=== PATIENT | male | born 1960 | race Caucasian/White ===

== ENCOUNTER → 2017-06-23 05:56 | Outpatient (CLI) | payer BC, SELFPAY ==
[2017-06-23 08:00] LABS: Thyroid Stim Hormone (TSH) 9.25 uIU/mL (0.358-3.74)
== END ==
PROVIDERS: Family Provider Family Medicine; PCP Family Medicine; Visit Provider Family Medicine
DX: E03.9 Hypothyroidism, unspecified (principal)
CPT/HCPCS: 36415; 84443

== ENCOUNTER → 2018-05-05 11:37 | Outpatient (CLI) | payer BC, SELFPAY ==
[2018-05-05 14:09] LABS: Thyroid Stim Hormone (TSH) 0.48 uIU/mL (0.358-3.74)
== END ==
PROVIDERS: Family Provider Family Medicine; PCP Family Medicine; Referring Provider Family Medicine; Visit Provider Family Medicine
DX: E03.9 Hypothyroidism, unspecified (principal)
CPT/HCPCS: 36415; 84443

== ENCOUNTER 2020-07-08 10:54 | Observation (INO) | payer BC, SELFPAY ==
[2020-07-08] VITALS (9 sets, daily range): BP systolic 127–156; BP diastolic 66–98; PULSE 73–110; RESP 14–24; TEMP 35.8–36.7; O2SAT 96–99; BMI 41.1; BMI 41.3
--- NOTE | 2020-07-08 11:07 | RAD_ITS ---
STUDY: X-RAY CHEST REASON FOR EXAM: Male, 60 years old. dyspnea TECHNIQUE: Single AP portable view of the chest. COMPARISON: None. FINDINGS: The lungs are clear and expanded. There is no demonstrated pleural abnormality. Normal size heart. Normal mediastinum and harpreet. Normal visualized pulmonary arteries. Normal visualized aortic arch and descending thoracic aorta. Normal visualized thoracic spine. Healed fracture the right clavicle. There is no demonstrated abnormality of the visualized soft tissue structures of the upper abdomen. RAD/Chest 1 View (Portable) IMPRESSION: Normal x-ray examination of the chest. Electronically Signed: Derek Mcintosh MD at 12:49 EDT Tel , Service support ,
--- NOTE | 2020-07-08 11:07 | EKG12_ITS ---
Test Reason : CP Blood Pressure : / mmHG Vent. Rate : 098 BPM Atrial Rate : 086 BPM P-R Int : 000 ms QRS Dur : 084 ms QT Int : 398 ms P-R-T Axes : 000 080 076 degrees QTc Int : 508 ms Atrial fibrillation Nonspecific ST abnormality Prolonged QT Abnormal ECG Confirmed by BRYCE VALENTINE, STEVEN ([id number]), content editor VINICIO LYLE ([id number]) on 07/11/2020 12:43:52 PM Referred By: ANGELIKA/ALICE Confirmed By:STEVEN WU MD
--- NOTE | 2020-07-08 11:07 | CT_ITS ---
STUDY: CT BRAIN WITHOUT CONTRAST REASON FOR EXAM: Male, 60 years old. dizziness, RADIATION DOSAGE (If Supplied By Facility): CTDIvol = ( 44.99 ) mGy, DLP = ( 846.73 ) mGycm TECHNIQUE: Transaxial CT imaging of the brain was performed without administration of intravenous contrast material. Individualized dose optimization techniques were used for this CT. COMPARISON: No relevant priors. FINDINGS: Normal soft tissue structures. Normal calvarium. Normal size ventricles and extra-axial spaces for the patient''s age. Normal white matter tracts of the cerebral hemispheres. Normal basal ganglia and thalami. Normal brainstem. Normal cerebellum. There is no intracranial hemorrhage. There are no findings of an acute ischemic infarction. There is mucoperiosteal inflammatory disease of the paranasal sinuses consistent with moderate chronic sinusitis. CT/Brain/Head without Contrast IMPRESSION: Normal unenhanced CT scan of the brain. Electronically Signed: Derek Mcintosh MD at 12:51 EDT Tel , Service support ,
--- NOTE | 2020-07-08 11:09 | EDS_ITS ---
HPI History of Present Illness Chief Complaint: General Illness Detail of Chief Complaint: Not feeling well for several days Informant: patient Narrative Narrative: Patient presents to the emergency department with multiple complaints today. Patient states that he feels dizzy and is having a hard time walking. The dizziness really became worse today. Dizziness is worse with position change. He was nauseated and vomited once on arrival the emergency department. Patient also feels like he is in atrial fibrillation which he has had before and is currently on Eliquis. He denies any falls or head injuries. He does state that over last couple days he feels like he is got a cold and has had a little bit of a cough and nasal congestion. Patient has had Covid prior. He denies recent travel or surgery. He describes some chest tightness. Patient states that he has been cardioverted for A. fib several times in the past. Prior similar symptoms: No PFSH PFS Medical History (Updated 07/08/20 @ 13:[address] Simon Schaffer, DO) Atrial fibrillation Hypothyroidism Home Medications apixaban [Eliquis] 5 mg PO QODAY 07/08/20 [History Last Taken Unknown] cetirizine 10 mg PO DAILY 07/08/20 [History Last Taken Unknown] levothyroxine 112 mcg PO DAILY 07/08/20 [History Last Taken Unknown] rosuvastatin 40 mg PO DAILY 07/08/20 [History Last Taken Unknown] Allergy/AdvReac Type Severity Reaction Status Date / Time No Known Allergies Allergy Verified 07/08/20 11:01 Surgical History (Updated 07/08/20 @ 11:54 by Altagracia Norris RN) History of coronary artery stent placement Social History (Updated 07/21/19 @ 11:25 by Farooq MAURER, PA) Smoking Status: Former smoker ROS ROS ED Constitutional Constitutional ED: Reports systems reviewed and no addt'l complaints, except as documented; Denies body ache(s), change in weight or chills Eyes Eyes: Denies acute decrease in peripheral vision, change in vision, double vision or loss of vision ENT ENT ED: Reports none; Denies ear pain, lip swelling, loss taste/smell, neck pain, otalgia or sore throat Cardiovascular Cardiovascular: Reports none, chest pain and palpitations; Denies abdominal pain, chest pain with activity, leg edema, lightheadedness, rapid heart rate or syncope Respiratory/Chest Respiratory/Chest: Reports none, cough and sputum; Denies change in mental status, dry cough, dyspnea, hemoptysis, shortness of breath at rest or shortness of breath with exertion Gastrointestinal Gastrointestinal: Reports none, nausea and vomiting; Denies abdominal pain, change in stool character, diarrhea, hematemesis, hematochezia, melena or rectal bleeding Genitourinary Genitourinary ED: Reports none; Denies abdominal discomfort, anuria, dysuria, genital pain or polyuria Musculoskeletal Musculoskeletal: Reports none; Denies arthralgias, back pain, difficulty walking, extremity pain, muscle weakness or myalgias Integumentary Reports none; Denies abscess or rash Neurologic Neurologic: Reports none and other Details: Dizziness ; Denies abnormal gait, confusion, focal weakness, frequent falls, headache(s), loss of vision, numbness, paresthesias, radicular pain, vertigo or weakness Psychiatric Psychiatric: Reports systems reviewed and no addt'l complaints, except as documented and none; Denies behavioral changes, confusion, difficulty concentrating, hallucinations, suicidal ideation, tactile hallucinations or visual hallucinations Endocrine Endocrinology: Denies none, cold intolerance, excessive sweating, fatigue or heat intolerance Hematologic/Lymphatic Hematologic/Lymphatic: Reports none; Denies anemia, easy bleeding or easy bruising Allergic/Immunologic Allergic/Immunologic ED: Denies as per HPI, none, lip swelling, mouth swelling, throat swelling, tongue swelling or hives EXAM Physical Exam Const Vital Signs: 07/08/20 10:54 07/08/20 11:53 07/08/20 13:27 Temperature 97.0 F L Temperature Source Oral Pulse Rate 99 73 Respiratory Rate 24 H 16 Respiratory Effort Normal Non-Labored Respiratory Pattern Normal Blood Pressure 156/85 H 142/91 H Blood Pressure Mean 108 108 Pulse Ox 97 99 Oxygen Delivery Method Room Air Room Air Positive well nourished and well developed General Appearance ED: well developed and NAD HEENT Reports TM's clear and moist mucous membranes normocephalic and atraumatic; Negative for trauma or tenderness Tympanic Membrane ED: Yes TM's clear Eyes PERRL and EOMs intact bilaterally General Eye ED: Negative for pale conjunctiva or scleral icterus Neck no lymphadenopathy, supple and no JVD General: Negative for tenderness Chest Wall inspection of chest normal and palpation of chest normal Chest: Negative for tenderness Resp normal respiratory effort and clear to auscultation bilaterally Effort and Inspection: Negative for respiratory distress or pain with movement Auscultation: Negative for rhonchi, wheezes or diminished lung sounds Cardio S1 normal heart sound, S2 normal heart sound and no murmurs Rate: other Other Details: Irregularly irregular Peripheral Pulses: pulses 2+ throughout GI normal to inspection, nondistended, normoactive bowel sounds, soft to palpation, non-tender, non-distended and no masses Back/Spine no CVA tenderness and no thoracic nor lumbar tenderness Extremity normal to inspection General Extremety ED: Negative for edema General Extremity: Negative for edema Neuro oriented x3, CN's II-XII intact bilaterally, no sensory deficits noted and gait normal Neuro Narrative: Patient does have nystagmus on Hallpike testing with head turn to the left. Sensorium / Orientation: awake, alert, oriented to person, oriented to place and oriented to time Motor Exam: strength 5/5 throughout and strength abnormal Psych mental status grossly normal Skin no rashes or lesions noted and no wounds MDM MDM MDM Narrative Medical decision making narrative: Patient was given Ativan and Antivert and felt somewhat improved. I suspect patient likely has benign positional vertigo. Patient also noted to have A. fib with RVR. He continues to complain of dizziness. Patient will be admitted for further treatment. At this point is unclear if his chest pain is related to the elevated heart rate in the A. fib versus acute coronary syndrome. At this time there are no ischemic changes on EKG and no evidence of elevated troponin. Lab Data Attestation: I reviewed the patient's lab results. Labs: Laboratory Results - last 24 hr 07/08/20 07/08/20 07/08/20 11:00 11:00 11:05 WBC 7.3 RBC 5.86 Hgb 17.2 H Hct 49.8 MCV 85.0 MCH 29.4 MCHC 34.5 RDW Std Deviation 40.6 RDW Coeff of [place]ierra 13.1 Plt Count 207 MPV 9.8 Immature Gran % (Auto) 0.400 Neut % (Auto) 68.4 Lymph % (Auto) 16.6 L [place] % (Auto) 11.5 H Eos % (Auto) 2.7 Baso % (Auto) 0.4 Absolute Neuts (auto) 5.0 Absolute Lymphs (auto) 1.22 Nucleated RBC % 0 Sodium 141 Potassium 3.6 Chloride 106 Carbon Dioxide 25.0 Anion Gap 10 BUN 17 Creatinine 0.95 Estim Creat Clear Calc 89.63 Est GFR (MDRD) Af Amer 103 Est GFR (MDRD) Non-Af 85 BUN/Creatinine Ratio 17.8 Glucose 120 H Lactic Acid 2.7 H* Calcium 8.9 Troponin I < 0.015 Radiography Chest X-Ray - ED: 1 View Diagnostic Testing: Radiology Impression Brain CT 07/08/20 11:07 IMPRESSION: Normal unenhanced CT scan of the brain. Electronically Signed: Derek Mcintosh MD at 12:51 EDT Tel , Service support , Chest X-Ray 07/08/20 11:07 IMPRESSION: Normal x-ray examination of the chest. Electronically Signed: Derek Mcintosh MD at 12:49 EDT Tel , Service support , 1 view chest x-ray obtained interpreted by myself as no acute disease process. EKG Initial EKG: Comments: Atrial fibrillation with a ventricular rate of [address] changes however poor baseline noted due to patient artifact of motion. Prior EKG tracings: available for review Prior: Changed (Prior EKG was sinus bradycardia) Discharge Plan Triage Chief Complaint: General Illness ED Provider: Simon Schaffer Dx/Rx/DC Orders Clinical Impression: Benign positional vertigo, Atrial fibrillation with rapid ventricular response, Chest pain Prescriptions: No Action cetirizine 10 mg tablet 10 mg PO DAILY RF: 0 levothyroxine 112 mcg tablet 112 mcg PO DAILY RF: 0 rosuvastatin 40 mg tablet 40 mg PO DAILY RF: 0 Eliquis 5 mg tablet 5 mg PO QODAY RF: 0 Primary Care Provider: Jose Luis Zhu Referrals: Jose Luis Zhu DO [Primary Care Provider] - Disposition Disposition: Acute Care [facility]
[2020-07-08 11:16] LABS: Absolute Lymphocyte Count 1.22 X10^3/uL (0.83-4.51); Basophil# 0.03 X10^3/uL; Basophil% 0.4 % (0-1); Eosinophils% 2.7 % (0-5); Hematocrit 49.8 % (40-54); Hemoglobin 17.2 g/dL (13.0-16.5); Lymphocyte # 1.22 X10^3/ul (0.83-4.51); Lymphocyte % 16.6 % (19-41); Mean Corp Hgb Conc 34.5 g/dL (32-36); Mean Corpuscular Hgb 29.4 pg (27.0-32.0); Mean Platelet Vol. 9.8 fl (6.2-12.0); Monocyte# 0.84 X10^3/uL; Monocyte% 11.5 % (0-10); NRBC Flagged by Analyzer 0 % (0-5); Neutrophil # 5.01 X10^3/uL (2.7-7.7); Neutrophil % 68.4 % (47-70); Platelet Count 207 K/mm3 (150-450); RBC Distribution Width CV 13.1 % (11.6-14.6); RBC Distribution Width SD 40.6 fl (35.1-43.9); Red Blood Count 5.86 M/mm3 (4.6-6.2); White Blood Count 7.3 K/mm3 (4.4-11.0)
[2020-07-08] MEDS: LORazepam 2 MG/ML Syringe 1 MG IV (11:21)
[2020-07-08] MEDS: Ondansetron 4 MG/2 ML Vial IV ×2 (11:22→15:50)
[2020-07-08] MEDS: 0.9% Normal Saline 1,000 ML 150 ML IV ×3 (11:22→20:37)
[2020-07-08] MEDS: Meclizine HCl 25 MG Tablet PO ×2 (11:24→20:45)
[2020-07-08 11:31] LABS: Anion Gap 10 (5-15); BUN 17 mg/dL (7-18); BUN/Creat Ratio 17.8 RATIO (10-20); Calcium,Total 8.9 mg/dL (8.5-10.1); Chloride 106 mmol/L (98-107); Creatinine, Serum 0.95 mg/dL (0.70-1.30); EST Glomerular Filtration Rate 85 mL/min (>60); Est Glom Filt Rate - Afr Amer 103 mL/min (>60); Estimated Creatinine Clearance 89.63 ml/min; Glucose 120 mg/dL (74-106); Potassium 3.6 mmol/L (3.5-5.1); Sodium Level 141 mmol/L (136-145)
[2020-07-08 11:55] LABS: Lactic Acid 2.7 mmol/L (0.4-1.9)
[2020-07-08] MEDS: dilTIAZem 25 MG/5 ML Vial 10 MG IV BOLUS (13:23)
--- NOTE | 2020-07-08 13:33 | HP.PCM.HOS_ITS ---
HPI - General General Date of Admission: 07/08/20 HPI Narrative ALLEN GARCIA, is a 60 M with a PMH as outlined who presents via the ED on 07/08/2020 with a myriad of complaints. He complained of dizziness and having a hard time walking, with dizziness worsened with position change. he has a history of afib and has been cardioverted in the past. He has also had a cough, with nasal congestion and cold. CT of [facility] brain done o/a of him being on eliquis was negative for intracranial bleed. He was nauseated and had vomiting on admission as well. Patient also complained of chest pressure on admission and felt his Afib was acting up. Patient had nystagmus in the ED with positional change after he had the Lonnie Hallpike testing. Vitals in the ED were blood pressure of 142/91, pulse rate of 73 and respiratory of 16 with oxygen sats of 99% on room air. CBC showed hemoglobin of 17.2 with WBC of 7.3 and platelets of 207. Lactic acid was 2.7. Chest x-ray showed no acute intracranial pathology. CT of the brain was normal. He is being admitted to be managed for vertigo and chest pain. [facility] Medical History (Updated 07/08/20 @ 16:[address] Katlyn Swift MD) Alcohol abuse Atrial fibrillation Former smoker GERD (gastroesophageal reflux disease) Hypothyroidism Home Medications apixaban [Eliquis] 5 mg PO DAILY 07/08/20 [History Last Taken Unknown] cetirizine 10 mg PO DAILY 07/08/20 [History Last Taken Unknown] levothyroxine 112 mcg PO DAILY 07/08/20 [History Last Taken Unknown] rosuvastatin 40 mg PO DAILY 07/08/20 [History Last Taken Unknown] Allergy/AdvReac Type Severity Reaction Status Date / Time No Known Allergies Allergy Verified 07/08/20 11:01 Surgical History (Updated 07/08/20 @ 11:54 by Altagracia Norris RN) History of coronary artery stent placement Social History (Updated 07/21/19 @ 11:25 by Farooq MAURER, LIBERTAD) Smoking Status: Former smoker ROS Constitutional Constitutional: Reports fatigue, malaise and weakness; Denies anorexia, change in weight, chills, fever(s) or night sweats Eyes Eyes: Denies blurry vision, discharge from eye(s) or double vision ENT HEENT: Denies abnormal hearing, dysphagia, headache(s), hearing loss or sinus pressure Cardiovascular Cardiovascular: Reports chest pain, lightheadedness and rapid heart rate; Denies dyspnea on exertion, edema, orthopnea, palpitations, paroxysmal nocturnal dyspnea or syncope Respiratory/Chest Respiratory/Chest: Reports shortness of breath at rest and shortness of breath with exertion; Denies cough, dyspnea, excessive phlegm production, hemoptysis, productive cough or wheezing Gastrointestinal Gastrointestinal: Denies abdominal pain, constipation or diarrhea Genitourinary Genitourinary: Denies burning urination or difficulty urinating Musculoskeletal Musculoskeletal: Denies arthralgias Neurologic Neurologic: Reports dizziness; Denies confusion, focal weakness, seizures or syncope Psychiatric Psychiatric: Denies anxiety Endocrine Endocrinology: Denies change in body appearance Hematologic/Lymphatic Hematologic/Lymphatic: Denies anemia Vital Signs Vital Signs Vital Signs: 07/08/20 10:54 07/08/20 11:53 07/08/20 13:27 Temperature 97.0 F L Temperature Source Oral Pulse Rate 99 73 Respiratory Rate 24 H 16 Respiratory Effort Normal Non-Labored Respiratory Pattern Normal Blood Pressure 156/85 H 142/91 H Blood Pressure Mean 108 108 Pulse Ox 97 99 Oxygen Delivery Method Room Air Room Air Weight Weight: 303 lb 2.17 oz Body Mass Index (BMI) 41.1 Physical Exam Const alert, oriented x3 and no apparent distress General Appearance: cooperative Orientation / Consciousness: lethargic HEENT normocephalic, head/scalp atraumatic, hearing grossly normal bilaterally and moist oral mucous membranes Eyes PERRL, EOMs intact bilaterally and conjunctivae normal Neck no lymphadenopathy Resp normal respiratory effort, no retractions, no use of accessory muscles and clear to auscultation bilaterally Cardio S1 normal heart sound, S2 normal heart sound and no murmurs Cardio Narrative: afib, rate controlled GI normal to inspection, nondistended, normoactive bowel sounds, soft to palpation, non-tender and non-distended Extremity normal to inspection, full ROM and no clubbing, cyanosis or edema Peripheral Pulses: Yes pulses 2+ throughout Skin no rashes or lesions noted Neuro oriented x3 Sensorium / Orientation: awake and alert Psych affect normal Lab / Micro Data Result Diagrams: 07/08/20 11:00 07/08/20 11:00 Labs: Laboratory Results - last 24 hr 07/08/20 07/08/20 07/08/20 11:00 11:00 11:05 WBC 7.3 RBC 5.86 Hgb 17.2 H Hct 49.8 MCV 85.0 MCH 29.4 MCHC 34.5 RDW Std Deviation 40.6 RDW Coeff of Cierra 13.1 Plt Count 207 MPV 9.8 Immature Gran % (Auto) 0.400 Neut % (Auto) 68.4 Lymph % (Auto) 16.6 L [place] % (Auto) 11.5 H Eos % (Auto) 2.7 Baso % (Auto) 0.4 Absolute Neuts (auto) 5.0 Absolute Lymphs (auto) 1.22 Nucleated RBC % 0 Sodium 141 Potassium 3.6 Chloride 106 Carbon Dioxide 25.0 Anion Gap 10 BUN 17 Creatinine 0.95 Estim Creat Clear Calc 89.63 Est GFR (MDRD) Af Amer 103 Est GFR (MDRD) Non-Af 85 BUN/Creatinine Ratio 17.8 Glucose 120 H Lactic Acid 2.7 H* Calcium 8.9 Troponin I < 0.015 Micro: Microbiology 07/08/20 11:05 SARS-CoV-2 Antigen (Rapid) - Final Interface Orders Radiology Impression Brain CT 07/08/20 11:07 IMPRESSION: Normal unenhanced CT scan of the brain. Electronically Signed: Derek Mcintosh MD at 12:51 EDT Tel , Service support , Chest X-Ray 07/08/20 11:07 IMPRESSION: Normal x-ray examination of the chest. Electronically Signed: Derek Mcintosh MD at 12:49 EDT Tel , Service support , Assessment & Plan Assessment/Plan (1) Chest pain: (2) Vertigo: (3) Atrial fibrillation with rapid ventricular response: PLAN: #Vertigo * Differential includes vestibular neuronitis in light of recent upper respiratory tract infection. BPPV also remains a possibility. * Admit to PCU with telemetry. * Hydrate gently with IV fluids. * CT of the brain was negative for any intracranial pathology. * I am less inclined to think symptoms may be due to a stroke as patient had a clear precipitating factor for respiratory tract infection over the last few days after which the vertigo started. He admits to tinnitus though he states this is chronic and he also has chronic hearing impairment so cannot tell if it is worsened overnight. * PT OT consult. Fall precautions. * If vertigo worsens, will get an MRI but will hold off for now in light of clear precipitating factor. * Meclizine as needed. * #Chest pressure * Patient states he felt his A. fib had recurred and he was having chest pressure. He denies overt chest pain. * We will cycle troponins. I did broach possible stress test tomorrow troponins are negative but patient does not appear to be enthused and wants to hold off on stress test for now * SL nitroglycerin prn. PO aspirin 81mg daily * EKG showed afib. * #AFib * Has had cardioversions in the past. Received a bolus of Cardizem in the ED. * Not on any beta-keren. Will start patient on p.o. metoprolol 25 mg twice daily. * #Hypothyroidism: on synthroid #Hyperlipidemia: on statin DVT prophylaxis: lovenox COde status: full code * Patient counseled about differences between full code, DNR CCA and DNR CCA. P atient tells me that he thinks he is too young and is not ready to yet and wants to be full code. * Total gyym-xg-tucx time 17 minutes. Visit Charges Inpatient E&M: 60945 Init Hosp L3 Procedures Hospitalists Procedures: 73730 Advncd Care Plan 30 Min
[2020-07-08 15:23] LABS: Reflex Lactate? Y
[2020-07-08 16:17] LABS: Lactic Acid 1.4 mmol/L (0.4-1.9)
--- NOTE | 2020-07-08 16:46 | MRI_ITS ---
STUDY: MRI BRAIN WITHOUT CONTRAST REASON FOR EXAM: Male, 60 years old. Vertigo TECHNIQUE: Standardized multiplanar fat and water weighted pulse sequences were obtained. COMPARISON: CT head without contrast 07/08/2020. FINDINGS: No diffusion restriction throughout the brain parenchyma. Normal size of the ventricles and extra-axial spaces for the patient''s age. View of posterior periatrial white matter T2 FLAIR hyperintensity foci in both cerebral hemispheres are presumably chronic white matter ischemic changes. Normal bilateral basal ganglia. Normal thalami. There is no extra-axial fluid accumulation. Normal flow voids within the major intracranial circulation suggesting patency by spin echo criteria. Normal sella turcica, pituitary gland, infundibular stalk, optic chiasm and hypothalamus. Normal tectal plate and pineal gland. Normal midbrain, [place] and medulla. Normal cerebellum. Normal basal cisterns. Normal bilateral temporal bones. Normal bilateral internal auditory canals. No demonstrated orbital abnormality, within the constraints of a routine brain study. Normal visualized paranasal sinuses. Normal calvarium and skull base. Normal visualized soft tissue structures. Normal visualized upper cervical spine. MRI/Brain without Contrast IMPRESSION: 1. No MRI evidence of acute or subacute ischemic infarct or acute intracranial abnormality. 2. Few chronic white matter ischemic changes in both periatrial white matter. Electronically Signed: Nate Villa MD at 16:14 EDT , Service support ,
--- NOTE | 2020-07-08 17:19 | MRI_ITS ---
STUDY: MRA OF THE HEAD WITHOUT CONTRAST REASON FOR EXAM: Male, 60 years old. Vertigo TECHNIQUE: 3-D [id number] (TOF) imaging was performed with MIPs. The study was performed unenhanced. COMPARISON: None. FINDINGS: Normal bilateral petrous carotid arteries. Normal right cavernous carotid artery with a normal supraclinoid bifurcation. Normal left cavernous carotid artery with a normal supraclinoid bifurcation. Normal right A1 segment of the anterior cerebral artery. Normal left A1 segment of the anterior cerebral artery. Normal intact anterior communicating artery (ACOM). Normal bilateral A2 segments of the anterior cerebral arteries. Normal right M1 and M2 segments of the middle cerebral arteries, with a normal M1 bifurcation. Normal left M1 and M2 segments of the middle cerebral arteries, with a normal M1 bifurcation. No visible right posterior communicating artery (PCOM). No visible left posterior communicating artery (PCOM). Normal bilateral vertebral arteries. Normal basilar artery with a normal basilar bifurcation. The visualized bilateral superior cerebellar (SCA) arteries are normal. Normal bilateral P1, P2 and visualized P3 segments of the posterior cerebral arteries. There is no demonstrated aneurysm of the [place] of [place]. There is no major vessel occlusion or hemodynamically significant stenosis. There is no demonstrated abnormality of the visualized brain. MRI/MRA Head ONLY without Contrast IMPRESSION: Normal MRA of the head Electronically Signed: Nate Villa MD at 16:15 EDT , Service support ,
--- NOTE | 2020-07-08 17:19 | MRI_ITS ---
STUDY: MRA NECK WITHOUT CONTRAST REASON FOR EXAM: Male, 60 years old. Vertigo TECHNIQUE: Source images were obtained, MIPs were performed. The study was performed unenhanced. COMPARISON: None. FINDINGS: RIGHT CAROTID ARTERIES: Normal right common carotid artery (CCA). Normal right internal carotid bulb. Normal origin of the right internal carotid (ICA) artery without a hemodynamically significant stenosis. Normal visualized cervical portion of the right internal carotid artery. Normal origin of the right external carotid artery (ECA). LEFT CAROTID ARTERIES: Normal left common carotid artery (CCA). Normal left internal carotid bulb. Normal origin of the left internal carotid (ICA) artery without a hemodynamically significant stenosis. Normal visualized cervical portion of the left internal carotid artery. Normal origin of the left external carotid artery (ECA). VERTEBRAL ARTERIES: Normal antegrade flow within the bilateral vertebral artery without a hemodynamically significant stenosis. They are codominant. MRI/MRA Neck without Contrast IMPRESSION: Normal bilateral cervical carotid and vertebral arteries. Electronically Signed: Nate Villa MD at 16:16 EDT , Service support ,
[2020-07-08] MEDS: Metoprolol(XL)Succ 25 MG Tablet PO (17:31)
[2020-07-08] MEDS: Atorvastatin Calcium 80 MG Tablet PO (20:37)
[2020-07-08] MEDS: proMETHazine 25 MG/ML Syringe 12.5 MG IM (21:49)
[2020-07-09] VITALS (16 sets, daily range): BP systolic 110–147; BP diastolic 72–90; PULSE 59–107; RESP 16–18; TEMP 36.2–36.6; O2SAT 93–99
--- NOTE | 2020-07-09 01:41 | NURSING ---
ariel celaya updated on pt not having much relief from antivert, discussed valium as an option, orders received. Also discussed pt's wifes request to transfer to [facility] to pass on to am physician.
[2020-07-09] MEDS: diazePAM 2 MG Tablet PO (02:00)
[2020-07-09] MEDS: 0.9% Normal Saline 1,000 ML 150 ML IV ×3 (03:22→20:06)
[2020-07-09 05:07] LABS: Absolute Lymphocyte Count 1.26 X10^3/uL (0.83-4.51); Absolute Neutrophil Count 5.4 X10^3/uL (2.0-7.7); Basophil# 0.02 X10^3/uL; Basophil% 0.3 % (0-1); Eosinophil# 0.06 X10^3/uL; Eosinophils% 0.8 % (0-5); Hematocrit 47.2 % (40-54); Hemoglobin 15.7 g/dL (13.0-16.5); Lymphocyte # 1.26 X10^3/ul (0.83-4.51); Mean Corp Hgb Conc 33.3 g/dL (32-36); Mean Corpuscular Hgb 29.2 pg (27.0-32.0); Mean Corpuscular Volume 87.9 fL (80-94); Mean Platelet Vol. 10.2 fl (6.2-12.0); Monocyte% 9.4 % (0-10); NRBC Flagged by Analyzer 0 % (0-5); Neutrophil # 5.36 X10^3/uL (2.7-7.7); Neutrophil % 72.1 % (47-70); Platelet Count 205 K/mm3 (150-450); RBC Distribution Width CV 12.9 % (11.6-14.6); RBC Distribution Width SD 41.5 fl (35.1-43.9); Red Blood Count 5.37 M/mm3 (4.6-6.2); White Blood Count 7.4 K/mm3 (4.4-11.0)
[2020-07-09 05:43] LABS: Anion Gap 8 (5-15); BUN 14 mg/dL (7-18); BUN/Creat Ratio 16.8 RATIO (10-20); Calcium,Total 8.1 mg/dL (8.5-10.1); Chloride 110 mmol/L (98-107); Creatinine, Serum 0.83 mg/dL (0.70-1.30); EST Glomerular Filtration Rate 100 mL/min (>60); Est Glom Filt Rate - Afr Amer 121 mL/min (>60); Estimated Creatinine Clearance 99.54 ml/min; Glucose 101 mg/dL (74-106); Potassium 3.7 mmol/L (3.5-5.1); Sodium Level 142 mmol/L (136-145)
[2020-07-09] MEDS: Levothyroxine 112 MCG Tablet PO (06:02)
[2020-07-09] MEDS: Loratadine 10 MG Tablet PO (08:13)
[2020-07-09] MEDS: Metoprolol(XL)Succ 25 MG Tablet PO ×2 (08:13→22:32)
--- NOTE | 2020-07-09 12:34 | PN.HOSP_ITS ---
Subjective Subjective Patient seen and examined. He feels much better today, and say his dizziness, nausea and vomiting have improved. an MRI of the brain was ordered yesterday after his vertigo acutely worsened and is pending. He is wondering if the vertigo could be related to his A. fib and is asking if he can be cardioverted. Patient is currently rate controlled and hemodynamically stable. Objective Data Objective Data Vital Signs: Vital Signs Temp Pulse Resp BP Pulse Ox 97.1 F L 92 18 133/88 H 98 07/09/20 08:10 07/09/20 10:42 07/09/20 08:10 07/09/20 08:13 07/09/20 08:10 Oxygen Delivery Method Room Air Weight: 296 lb 11.875 oz Body Mass Index (BMI) 41.3 Orthostatic Vital Signs Start: 07/08/20 16:41 Freq: 0600 Status: Active Protocol: Activity Type Activity Date Activity User E-Sign Co-Sign Detail Recorded Client Recorded Date Recorded By Document 07/09/20 06:45 AF [id number] 07/09/20 07:25 AF 07/09/20 06:45 Orthostatic Vitals Standing -Blood Pressure (90/60-120/80) 124/81 H -Extremity Use Left Arm -Pulse Rate (60-100) 70 Sitting -Blood Pressure (90/60-120/80) 110/74 -Extremity Use Left Arm -Pulse Rate (60-100) 65 Lying -Blood Pressure (90/60-120/80) 116/78 -Extremity Use Left Arm -Pulse Rate (60-100) 72 Intake & Output: Intake and Output for Last 24 Hours 07/07/20 07/08/20 07/09/20 23:59 23:59 23:59 Intake Total 1272.5 / 1472.5 1600 / 1600 Output Total 0 / 300 600 / 600 Balance 1272.5 / 1172.5 1000 / 1000 Lab / Micro Data Result Diagrams: 07/09/20 04:36 07/09/20 04:36 Labs: Laboratory Results - last 24 hr 07/08/20 07/08/20 07/08/20 15:45 15:45 18:05 WBC RBC Hgb Hct MCV MCH MCHC RDW Std Deviation RDW Coeff of Cierra Plt Count MPV Immature Gran % (Auto) Neut % (Auto) Lymph % (Auto) [place] % (Auto) Eos % (Auto) Baso % (Auto) Absolute Neuts (auto) Absolute Lymphs (auto) Nucleated RBC % Sodium Potassium Chloride Carbon Dioxide Anion Gap BUN Creatinine Estim Creat Clear Calc Est GFR (MDRD) Af Amer Est GFR (MDRD) Non-Af BUN/Creatinine Ratio Glucose Lactic Acid 1.4 Calcium Troponin I < 0.015 < 0.015 07/09/20 07/09/20 04:36 04:36 WBC 7.4 RBC 5.37 Hgb 15.7 Hct 47.2 MCV 87.9 MCH 29.2 MCHC 33.3 RDW Std Deviation 41.5 RDW Coeff of Cierra 12.9 Plt Count 205 MPV 10.2 Immature Gran % (Auto) 0.400 Neut % (Auto) 72.1 H Lymph % (Auto) 17.0 L [place] % (Auto) 9.4 Eos % (Auto) 0.8 Baso % (Auto) 0.3 Absolute Neuts (auto) 5.4 Absolute Lymphs (auto) 1.26 Nucleated RBC % 0 Sodium 142 Potassium 3.7 Chloride 110 H Carbon Dioxide 24.0 Anion Gap 8 BUN 14 Creatinine 0.83 Estim Creat Clear Calc 99.54 Est GFR (MDRD) Af Amer 121 Est GFR (MDRD) Non-Af 100 BUN/Creatinine Ratio 16.8 Glucose 101 Lactic Acid Calcium 8.1 L Troponin I Micro: Microbiology 07/08/20 11:05 Interface Orders SARS-CoV-2 Antigen (Rapid) - Final Radiography Diagnostic Testing: Radiology Impression Brain CT 07/08/20 11:07 IMPRESSION: Normal unenhanced CT scan of the brain. Electronically Signed: Derek Mcintosh MD at 12:51 EDT Tel , Service support , Chest X-Ray 07/08/20 11:07 IMPRESSION: Normal x-ray examination of the chest. Electronically Signed: Derek Mcintosh MD at 12:49 EDT Tel , Service support , Physical Exam Const alert, oriented x3 and no apparent distress General Appearance: cooperative Orientation / Consciousness: lethargic HEENT normocephalic, head/scalp atraumatic, hearing grossly normal bilaterally and moist oral mucous membranes Eyes PERRL, EOMs intact bilaterally and conjunctivae normal Neck no lymphadenopathy Resp normal respiratory effort, no retractions, no use of accessory muscles and clear to auscultation bilaterally Cardio S1 normal heart sound, S2 normal heart sound and no murmurs Cardio Narrative: afib, rate controlled GI normal to inspection, nondistended, normoactive bowel sounds, soft to palpation, non-tender and non-distended Extremity normal to inspection, full ROM and no clubbing, cyanosis or edema Skin no rashes or lesions noted Neuro oriented x3 Sensorium / Orientation: awake and alert Psych affect normal Assessment & Plan Assessment/Plan (1) Chest pain: (2) Vertigo: (3) Atrial fibrillation with rapid ventricular response: PLAN: #Vertigo * symptoms much better today. * CT of the brain was negative. MRI of he brain ordered to rule out a possible stroke is pending. * PT/OT on board * Fall precautions * on PO meclizine. * #Chest pressure * resolved. troponins x 3 were negative. EKG showed no acute ST changes * patient doesnt want any further workup as he thinks the symptoms are due to his afib. * * #AFib * Has had cardioversions in the past. Received a bolus of Cardizem in the ED. * started on PO metoprolol. Patient asked about cardioversion but I informed him that in light of his heart rate being controlled and him being stable, there was not any clear role for cardioversion now. * #Hypothyroidism: on synthroid #Hyperlipidemia: on statin DVT prophylaxis: lovenox COde status: full code * Visit Charges OBSV E&M: 57316 Subsequent observation care L2
--- NOTE | 2020-07-09 12:53 | NURSING ---
NIH and vitals late d/t pt off floor for test. Completed once pt returned.
[2020-07-09] MEDS: 0.9% Saline Lock 10 ML Syringe IV (13:05)
[2020-07-09] MEDS: Acetaminophen 325 MG Tablet 650 MG PO (20:04)
[2020-07-09] MEDS: Meclizine HCl 25 MG Tablet PO (20:15)
[2020-07-09] MEDS: Atorvastatin Calcium 80 MG Tablet PO (22:33)
[2020-07-09] MEDS: guaiFENesin 1,200 MG Tablet 1200 MG PO (23:13)
[2020-07-10] MEDS: 0.9% Normal Saline 1,000 ML 150 ML IV (02:22)
[2020-07-10 03:00] VITALS: PULSE 81
[2020-07-10 04:00] VITALS: BP 128/76; PULSE 63; RESP 16; TEMP 36.4; O2SAT 96
[2020-07-10] MEDS: Levothyroxine 112 MCG Tablet PO (05:23)
[2020-07-10 07:09] VITALS: O2SAT 96
[2020-07-10 07:30] VITALS: PULSE 78
--- NOTE | 2020-07-10 11:30 | PCM.DC.SUM ---
Providers Date of Admission: 07/08/20 Primary Care Physician: Dr. Jose Luis Zhu, DO Reason For Visit: VERTIGO, CHEST PAIN Diagnosis Discharge Diagnosis (1) Chest pain: Status: Acute Code(s): R07.9 - Chest pain, unspecified (2) Vertigo: Status: Acute Code(s): R42 - Dizziness and giddiness (3) Atrial fibrillation with rapid ventricular response: Status: Acute Code(s): I48.91 - Unspecified atrial fibrillation Medications at Discharge Home Medications Eliquis 5 mg PO DAILY 07/08/20 cetirizine 10 mg PO DAILY 07/08/20 levothyroxine 112 mcg PO DAILY 07/08/20 rosuvastatin 40 mg PO DAILY 07/08/20 meclizine 25 mg PO TID PRN PRN #30 tab 07/10/20 metoprolol succinate 25 mg PO BID #60 tab 07/10/20 ondansetron HCl [Zofran] 4 mg PO Q8H PRN #20 tab 07/10/20 Hospital Course Operations None Procedures None Summary of Care Provided Minutes Spent on Discharge: 35 Hospital Course: ALLEN GARCIA, is a 60 M with a H as outlined who presents via the ED on 07/08/2020 with a myriad of complaints. He complained of dizziness and having a hard time walking, with dizziness worsened with position change. he has a history of afib and has been cardioverted in the past. He has also had a cough, with nasal congestion and cold. CT of [facility] brain done o/a of him being on eliquis was negative for intracranial bleed. He was nauseated and had vomiting on admission as well. Patient also complained of chest pressure on admission and felt his Afib was acting up. Patient had nystagmus in the ED with positional change after he had the Lonnie Hallpike testing. Vitals in the ED were blood pressure of 142/91, pulse rate of 73 and respiratory of 16 with oxygen sats of 99% on room air. CBC showed hemoglobin of 17.2 with WBC of 7.3 and platelets of 207. Lactic acid was 2.7. Chest x-ray showed no acute intracranial pathology. CT of the brain was normal. He was admitted to be managed for vertigo and chest pain. Patient was started on meclizine and hydrated with IV fluids. Troponins were cycled x3 and were negative. Patient thought his mild chest pressure was likely related to his A. fib and did not want any further work-up done such as stress test and preferred to follow-up with his order caller on outpatient basis. Vertigo acutely worsened and so an MRI was obtained which was negative for stroke. Patient subsequently improved significantly and felt much better. It was thought that his symptoms were likely due to vestibular neuronitis as a result of an upper respiratory infection he had had just prior to the onset of his vertigo. Patient worked well with physical therapy and remained stable. He was discharged home on 07/10/2020 and his follow-up with his primary care doctor and cardiology. Patient was seen and examined prior to discharge. He felt well and had no complaints. Review of symptoms otherwise negative. Labs and vitals reviewed. Home medication reviewed and reconciled. Physical Exam Const alert, oriented x3 and no apparent distress General Appearance: cooperative Orientation / Consciousness: awake, oriented to person, oriented to place and oriented to time Exam Limitations: no limitations HEENT normocephalic, head/scalp atraumatic, hearing grossly normal bilaterally and moist oral mucous membranes Eyes PERRL, EOMs intact bilaterally and conjunctivae normal Neck no lymphadenopathy Resp normal respiratory effort, no retractions, no use of accessory muscles and clear to auscultation bilaterally Cardio S1 normal heart sound, S2 normal heart sound and no murmurs Cardio Narrative: afib, rate controlled GI normal to inspection, nondistended, normoactive bowel sounds, soft to palpation, non-tender and non-distended Extremity normal to inspection, full ROM and no clubbing, cyanosis or edema Skin no rashes or lesions noted Neuro oriented x3 Sensorium / Orientation: awake and alert Psych affect normal ABG / Lab / Microbiology Data Result Diagrams: 07/09/20 04:36 07/09/20 04:36 Microbiology: Microbiology 07/08/20 11:18 Blood Culture - Preliminary Blood Culture (Wb) - Left Forearm No growth in 48 hours. 07/08/20 11:05 Blood Culture - Preliminary Blood Culture (Wb) - Anticubital Right No growth in 48 hours. Microbiology 07/08/20 11:18 Blood Culture (Wb) - Left Forearm Blood Culture - Preliminary No growth in 48 hours. 07/08/20 11:05 Blood Culture (Wb) - Anticubital Right Blood Culture - Preliminary No growth in 48 hours. 07/08/20 11:05 Interface Orders SARS-CoV-2 Antigen (Rapid) - Final Radiography Diagnostic Testing: Radiology Impression Brain MRI 07/08/20 16:46 IMPRESSION: 1. No MRI evidence of acute or subacute ischemic infarct or acute intracranial abnormality. 2. Few chronic white matter ischemic changes in both periatrial white matter. Electronically Signed: Nate Villa MD at 16:14 EDT , Service support , Head MRA 07/08/20 17:19 IMPRESSION: Normal MRA of the head Electronically Signed: Nate Villa MD at 16:15 EDT , Service support , Neck MRA 07/08/20 17:19 IMPRESSION: Normal bilateral cervical carotid and vertebral arteries. Electronically Signed: Nate Villa MD at 16:16 EDT , Service support , D/C Instructions Discharge Diet: 2000 mg Sodium Diet Discharge Activity: Return to Normal Activity Weight Bearing Status: Weight bearing as tolerated Call your doctor if you observe: Fever of 101 or Higher, Shortness of breath, Dizziness, Swelling in the ankles and Increased palpitations (irregular heartbeat) Meaningful Use Info Meaningful Use Diagnoses (Choose all that apply): None applicable Discharge Plan Admission Admit Date/Time: 07/08/20 13:54 Attending Provider: Katlyn Swift Primary Care Provider: Jose Luis Zhu Instructions Patient Instructions: ED Chest Pain, Noncardiac, ED BPV Vertigo, ED Labyrinthitis Discharge Orders/Prescriptions Prescriptions: New meclizine 25 mg Tablet 25 mg PO TID PRN PRN (Reason: Vertigo) Qty: 30 RF: 0 metoprolol succinate 25 mg Tablet Extended Release 24 Hr 25 mg PO BID Qty: 60 RF: 1 ondansetron HCl [Zofran] 4 mg tablet 4 mg PO Q8H PRN (Reason: nausea and vomiting) Qty: 20 RF: 0 Continued cetirizine 10 mg tablet 10 mg PO DAILY RF: 0 levothyroxine 112 mcg tablet 112 mcg PO DAILY RF: 0 rosuvastatin 40 mg tablet 40 mg PO DAILY RF: 0 Eliquis 5 mg tablet 5 mg PO DAILY RF: 0 Referrals / Follow Up: Jose Luis Zhu DO [Primary Care Provider] - In 1 Week Disposition Disposition (needs filled in before D/C Order can be placed): Home, self care Visit Charges Inpatient E&M: 05063 Disch Hosp
[2020-07-10 11:44] VITALS: BP 136/87; PULSE 62; RESP 12; TEMP 36.2; O2SAT 97
[2020-07-10] MEDS: APIXABAN 5 MG TABLET PO (11:48)
[2020-07-10] MEDS: guaiFENesin 1,200 MG Tablet 1200 MG PO (11:48)
[2020-07-10 11:49] VITALS: BP 136/87; PULSE 62
[2020-07-10] MEDS: Loratadine 10 MG Tablet PO (11:49)
[2020-07-10] MEDS: Metoprolol(XL)Succ 25 MG Tablet PO (11:49)
[2020-07-10] MEDS: Meclizine HCl 25 MG Tablet PO (12:10)
== END 2020-07-10 11:38 | disposition home or self-care (01) ==
LOC: ED 13:40 → PCU 13:57
PROVIDERS: Admitting Provider Student in an Organized Health Care Education/Training Program; Emergency Provider Emergency Medicine; PCP Student in an Organized Health Care Education/Training Program; Visit Provider Student in an Organized Health Care Education/Training Program
DX: R07.89 Other chest pain (principal); I48.91 Unspecified atrial fibrillation; R11.2 Nausea with vomiting, unspecified; E03.9 Hypothyroidism, unspecified; H81.10 Benign paroxysmal vertigo, unspecified ear; K21.9 Gastro-esophageal reflux disease without esophagitis; Z79.01 Long term (current) use of anticoagulants; Z79.899 Other long term (current) drug therapy; Z87.891 Personal history of nicotine dependence; E78.5 Hyperlipidemia, unspecified
CPT/HCPCS: 36415; 70450; 70544; 70547; 70551; 71045; 80048; 83605; 84484; 85025; 87040; 87426; 93005; 96361; 96372; 96374; 96375; 96376; 97162; 97166; 99218; 99285; J7030; A4216; G0378; J2405

== ENCOUNTER 2022-02-24 09:49 | Day surgery (SDC) | payer OTHER, SELFPAY ==
[2022-02-24 10:33] VITALS: BP 151/84; PULSE 55; RESP 16; TEMP 36.6; O2SAT 96; BMI 42.4
[2022-02-24] MEDS: Lactated Ringers 1,000 ML 15 ML IV (11:02)
[2022-02-24 11:09] LABS: Anion Gap 8 (5-15); BUN 19 mg/dL (7-18); BUN/Creat Ratio 17.4 RATIO (10-20); Calcium,Total 8.7 mg/dL (8.5-10.1); Chloride 106 mmol/L (98-107); Creatinine, Serum 1.09 mg/dL (0.70-1.30); EST Glomerular Filtration Rate 73 mL/min (>60); Est Glom Filt Rate - Afr Amer 88 mL/min (>60); Estimated Creatinine Clearance 74.84 ml/min; Glucose 108 mg/dL (74-106); Sodium Level 140 mmol/L (136-145)
[2022-02-24 11:11] LABS: Hematocrit 48.2 % (40-54); Hemoglobin 16.5 g/dL (13.0-16.5); Mean Corp Hgb Conc 34.2 g/dL (32-36); Mean Corpuscular Hgb 30.1 pg (27.0-32.0); Mean Corpuscular Volume 87.8 fL (80-94); Mean Platelet Vol. 10.7 fl (6.2-12.0); Platelet Count 179 K/mm3 (150-450); RBC Distribution Width CV 12.9 % (11.6-14.6); RBC Distribution Width SD 41.5 fl (35.1-43.9); Red Blood Count 5.49 M/mm3 (4.6-6.2); White Blood Count 6.6 K/mm3 (4.4-11.0)
--- NOTE | 2022-02-24 11:45 | MASS_PTH ---
PATIENT: ALLEN GARCIA LOC: [facility] [place] U#:[id number] AGE/SX: 61/M ROOM: RE02/24/[address]: Dr. Vincent Herrmann MD : 1960 BED: DIS: 02/24/2022 SPEC #: [id number] RECD: 02/24/22 14:25 STATUS: RUIZ JIMENEZ #: [id number] LONG: 02/24/22 11:[address]: Vincent Herrmann DEPT: SURGICAL PATHOLOGY RECD BY: Ely Pearson ENTERED: 02/25/22 10:03 SP TYPE: Mass OTHR DR: Dr. Jose Luis Zhu, DO Tissues: Neck, NOS Procedures: Surgery Specimen Level III HEADER OPERATION: Excision neck mass PRE-OP DIAGNOSIS: Neck mass TISSUE SUBMITTED: Left neck mass MICROSCOPIC DIAGNOSIS Left neck mass, excisional biopsy: Mature adipose tissue, consistent with lipoma. VANDANA:garima 02/26/2022 MICROSCOPIC DESCRIPTION Slides are reviewed. GROSS DESCRIPTION Received in fixative is one container labeled with the patient's name and designated left neck mass. The specimen consists of two pieces of yellow adipose tissue measuring in aggregate 3.5 x 3.5 x 1.5 cm. Sections reveal yellow adipose cut surfaces without area of hemorrhage, necrosis or cystic degeneration. No obvious mass lesion is identified. The entire specimen is submitted in four cassettes. / SJ:rg 02/25/2022 TC:1 CPT: 57301
--- NOTE | 2022-02-24 12:05 | PCM.DC.SUM ---
Providers Primary Care Physician: Dr. Jose Luis Zhu, DO Reason For Visit: EXC NECK MASS, LEFT TO BACK Medications at Discharge Home Medications apixaban 5 mg tablet (Eliquis) 5 mg PO BID 07/08/20 levothyroxine 112 mcg tablet 224 mcg PO DAILY 07/08/20 rosuvastatin 40 mg tablet 40 mg PO DAILY 07/08/20 ascorbic acid (vitamin C) 500 mg tablet (Vitamin C) 500 mg PO DAILY 02/17/22 furosemide 40 mg tablet 40 mg PO BID 02/17/22 nitroglycerin 0.4 mg sublingual tablet 0.4 mg sublingual Q5M PRN CP 02/17/22 Weight / BMI Weight Weight: 138 kg Body Mass Index (BMI) 42.4 ABG / Lab / Microbiology Data Result Diagrams: 02/24/22 11:04 02/24/22 10:45 Laboratory: Laboratory Results - last 24 hr 02/24/22 10:45: WBC Cancelled, Corrected WBC Cancelled, RBC Cancelled, Hgb Cancelled, Hct Cancelled, MCV Cancelled, MCH Cancelled, MCHC Cancelled, RDW Std Deviation Cancelled, RDW Coeff of Cierra Cancelled, Plt Count Cancelled, MPV Cancelled, Diff Path Review Cancelled 02/24/22 10:45: Sodium 140, Potassium 4.0, Chloride 106, Carbon Dioxide 26.0, Anion Gap 8, BUN 19 H, Creatinine 1.09, Estim Creat Clear Calc 74.84, Est GFR (MDRD) Af Amer 88, Est GFR (MDRD) Non-Af 73, BUN/Creatinine Ratio 17.4, Glucose 108 H, Calcium 8.7 02/24/22 11:04: WBC 6.6, RBC 5.49, Hgb 16.5, Hct 48.2, MCV 87.8, MCH 30.1, MCHC 34.2, RDW Std Deviation 41.5, RDW Coeff of Cierra 12.9, Plt Count 179, MPV 10.7 D/C Instructions Discharge Diet: No restrictions Discharge Activity: Return to Normal Activity May shower in (days): 2 Remove Dressing in: 2 days Cleanse incision/area with: Keep Dressing Clean & Dry Please Follow Up With: Vincent Herrmann MD When: end of next week Meaningful Use Info Meaningful Use Diagnoses (Choose all that apply): None applicable Discharge Plan Admission Attending Provider: Vincent Herrmann Primary Care Provider: Jose Luis Zhu Discharge Orders/Prescriptions Prescriptions: No Action levothyroxine 112 mcg tablet 224 mcg PO DAILY Label Comments: TAKE 2 TABLETS BY MOUTH EVERY DAY rosuvastatin 40 mg tablet 40 mg PO DAILY Eliquis 5 mg tablet 5 mg PO BID ascorbic acid (vitamin C) [Vitamin C] 500 mg Tablet 500 mg PO DAILY nitroglycerin 0.4 mg Tablet, Sublingual 0.4 mg SUBLINGUAL Q5M PRN (Reason: CP) Rx Instructions: do not exceed 3 doses per episode furosemide 40 mg Tablet 40 mg PO BID Referrals / Follow Up: Jose Luis Zhu DO [Primary Care Provider] - Disposition Disposition (needs filled in before D/C Order can be placed): Home, Self Care
[2022-02-24] MEDS: Lidocaine 1% /Epi 1:100 (20ml) 20 ML Vial (12:31)
--- NOTE | 2022-02-24 12:56 | PCM.OPRPT ---
Report of Operation Date of Procedure: 02/24/22 Pre-Operative Diagnosis: neck mass Post-Operative Diagnosis: same Surgery/Procedure Performed:: excision neck mass Description of Surgical Findings:: lipoma Surgeon: Vincent Herrmann Type of Anesthesia: Local MAC Anesthesiologist: Po Garcia Estimated Blood Loss (mL): minimal Description of Procedure: The patient was taken to the operating room on 02/24/2022. He was placed in the right lateral decubitus position. The posterior neck was prepped and draped sterilely. 1% lidocaine with epinephrine injected into the skin overlying the lipoma. A 4 cm incision was made in the skin with a 15 blade. This carried down through the skin sharply. Hemostasis was achieved with bipolar cautery. Next sharp dissection was used around the lipoma. The lipoma was eventually excised and sent for permanent section. Again hemostasis was achieved with bipolar cautery. The wound was irrigated with saline. Next I closed the space with interrupted 3-0 chromic. The subcutaneous tissue was closed with 3-0 chromic. The skin was then closed with 5-0 running nylon. A pressure dressing was applied. The patient was awoken and brought to the recovery room in stable condition. Blood loss minimal, replacement none. Sponge, needle, and instrument count were correct at the end of the procedure.
[2022-02-24 13:05] VITALS: BP 151/84; BP 152/80; PULSE 69; RESP 16; TEMP 36.6; O2SAT 97
[2022-02-24 13:10] VITALS: BP 132/76; BP 151/84; PULSE 63; RESP 16; O2SAT 95
[2022-02-24 13:15] VITALS: BP 135/78; BP 151/84; PULSE 64; RESP 16; O2SAT 97
[2022-02-24 13:25] VITALS: BP 141/81; BP 151/84; PULSE 66; RESP 16; TEMP 36.2; O2SAT 97
[2022-02-24 14:00] VITALS: BP 121/75; BP 151/84; PULSE 60; RESP 18; O2SAT 95
== END 2022-02-24 14:13 | disposition home or self-care (01) ==
LOC: SDC 09:52 → AC 09:58
PROVIDERS: PCP Student in an Organized Health Care Education/Training Program; Visit Provider Otolaryngology
PROC: (CPT 11424; principal; 2022-02-24 11:30)
DX: D17.0 Benign lipomatous neoplasm of skin and subcutaneous tissue of head, face and neck (principal); Z87.891 Personal history of nicotine dependence; E78.00 Pure hypercholesterolemia, unspecified; I10 Essential (primary) hypertension; E03.9 Hypothyroidism, unspecified
CPT/HCPCS: 11424; 00300; 80048; 85027; 88304; 88305; J7120; J2405